=== PATIENT | female | born 1945 | race American Indian/Alaskan Native ===

== ENCOUNTER 2022-08-02 14:07 | Emergency (ER) | payer OTHER ==
[2022-08-02 14:24] VITALS: BP 137/77; PULSE 61; RESP 16; TEMP 98.7; BMI 34.2
== END 2022-08-02 17:05 | disposition home or self-care (01) ==
LOC: JER 14:07
DX: M25.551 Pain in right hip (principal); W18.30XA Fall on same level, unspecified, initial encounter; Y93.89 Activity, other specified; Y92.008 Other place in unspecified non-institutional (private) residence as the place of occurrence of the external cause
CPT/HCPCS: 73502-TC-RT-FY; 73552-TC-RT-FY; 99283-25

== ENCOUNTER 2023-09-20 06:34 | Emergency (ER) | payer OTHER ==
[2023-09-20 06:58] VITALS: RESP 16; BMI 32.7
[2023-09-20 10:03] VITALS: BP 180/85; PULSE 67; TEMP 98.7
[2023-09-20 10:17] LABS: URINE APPEARANCE CLEAR; URINE BILIRUBIN NEGATIVE (NEGATIVE); URINE COLOR YELLOW; URINE GLUCOSE (UA) NEGATIVE (NEGATIVE); URINE KETONE NEGATIVE (NEGATIVE); URINE LEUK ESTERASE NEGATIVE (NEGATIVE); URINE NITRITE NEGATIVE (NEGATIVE); URINE PROTEIN NEGATIVE (NEGATIVE); URINE UROBILINOGEN 0.2 mg/dL (0.2-1.0)
[2023-09-20 10:22] LABS: BASO % 0.3 % (0-2.0); HEMATOCRIT 42.3 % (32.4-45.2); MCH 30.9 pg (25.7-33.7); MCHC 33.1 g/dl (32.0-36.0); MEAN CELL VOLUME 93.5 fl (80-96); MEAN PLT VOLUME 9.4 fl (7.5-11.1); MONO % 5.5 % (3.8-10.2); NEUT % 87.2 % (42.8-82.8); PLATELET COUNT 285 10^3/uL (134-434); RBC 4.52 M/mm3 (3.60-5.2); RDW 13.4 % (11.6-15.6); WHITE BLOOD COUNT 16.8 K/mm3 (4.0-10.0)
[2023-09-20 10:25] LABS: INR 1.03 (0.83-1.09); PROTHROMBIN TIME (PATIENT) 11.8 SEC (9.7-13.0)
[2023-09-20 10:42] LABS: POTASSIUM 3.4 mmol/L (3.5-5.1)
[2023-09-20 10:45] LABS: ALBUMIN 4.1 g/dl (3.4-5.0); BLOOD UREA NITROGEN 18.5 mg/dL (7-18); CALCIUM 10.6 mg/dL (8.5-10.1)
[2023-09-20 10:48] LABS: CREATININE 0.9 mg/dL (0.55-1.3)
[2023-09-20 10:50] LABS: BILIRUBIN,TOTAL 0.9 mg/dL (0.2-1); TOT PROT 7.8 g/dl (6.4-8.2)
== END 2023-09-20 11:34 | disposition short-term general hospital (02) ==
LOC: JER 06:34
DX: G83.4 Cauda equina syndrome (principal); M62.81 Muscle weakness (generalized)
CPT/HCPCS: 36415; 80053; 81003; 85025; 85610; 86850; 86900; 86901; 87086; 93005; 93010; 99291

== ENCOUNTER 2024-11-12 18:35 | Inpatient (IN) | payer OTHER ==
[2024-11-12 18:47] VITALS: BMI 37.3
[2024-11-12] MEDS: LACTATED RINGERS SOLUTION 1000 ML INFUS.BAG IV ONE (20:15)
[2024-11-12] MEDS: ACETAMINOPHEN 325 MG TABLET (FP) PO ONE (20:20)
[2024-11-12] MEDS ORDERED: ACETAMINOPHEN 325 MG TABLET (FP) ONE (20:39)
[2024-11-12 20:51] LABS: ABSOLUTE IMMATURE GRANULOCYTES 0.07 x10^3/uL (0.0-0.031); BASOPHILS # 0.09 x10^3/uL (0.01-0.08); EOSINOPHIL % 0.4 % (0.7-5.8); EOSINOPHILS # 0.05 x10^3/uL (0.04-0.36); MCHC 30.8 g/dl (32.2-35.5); MEAN CELL VOLUME 86.6 fl (79.4-94.8); MEAN PLT VOLUME 10.8 fl (9.4-12.3); MONOCYTE # 1.02 x10^3/uL (0.24-0.86); MONOCYTE % 8.0 % (4.7-12.5); RDW 15.1 % (12.4-16.6)
[2024-11-12 20:55] LABS: LACTIC ACID 2.8 mmol/L (0.4-2.0)
[2024-11-12 21:08] LABS: EPI CELLS 4 /uL (0-25.1); HYALINE CASTS 0 /uL (0-3.1); URINE APPEARANCE CLOUDY; URINE BACTERIA >9,000 /uL (0-1359); URINE BILIRUBIN NEGATIVE (NEGATIVE); URINE COLOR YELLOW; URINE GLUCOSE (UA) NEGATIVE (NEGATIVE); URINE KETONE NEGATIVE (NEGATIVE); URINE LEUK ESTERASE 3+ (NEGATIVE); URINE NITRITE POSITIVE (NEGATIVE); URINE PROTEIN 1+ (NEGATIVE); URINE RBC 23 /uL (0-23.9); URINE UROBILINOGEN 1.0 mg/dL (0.2-1.0); URINE WBC 1529 /uL (0-25.8)
[2024-11-12 21:12] LABS: GLUCOSE,RANDOM 170.0 mg/dL (74-106); TOT PROT 7.3 g/dl (6.4-8.2)
[2024-11-12 21:13] LABS: CO2 24.0 mmol/L (21-32)
[2024-11-12 21:15] LABS: ALK PHOS 72.0 U/L (40-150)
[2024-11-12 21:17] LABS: SGOT/AST 16.0 U/L (5-34); SGPT/ALT 7.0 U/L (0-55)
[2024-11-12 21:18] LABS: CREATININE 0.69 mg/dL (0.55-1.3)
[2024-11-12] MEDS: LACTATED RINGERS SOLUTION 1,000 ML/1,000 ML INFUS.BAG IV SCH (21:44)
[2024-11-12] MEDS: LEVOFLOXACIN IVPB ONE (22:24)
[2024-11-13] MEDS: RANOLAZINE E.R. 500 MG TABLET (FP) PO SCH (02:10)
[2024-11-13] MEDS: MYCOPHENOLATE SODIUM 360 MG TABLET.DR PO SCH (02:11)
[2024-11-13] MEDS: ACETAMINOPHEN 1000 MG/100 ML BAG IVPB PRN (06:10)
[2024-11-13] MEDS: INSULIN ASPART SLIDING SCALE (NOVOLOG) 1 VIAL SQ SCH (06:17)
[2024-11-13] MEDS: GABAPENTIN 300 MG CAPSULE PO SCH (06:17)
[2024-11-13] MEDS: FUROSEMIDE 40 MG/4 ML INJECTABLE VIAL IVPUSH ONE (06:22)
[2024-11-13] MEDS: TRIMETHOBENZAMIDE HCL 200MG/2ML INJ IM PRN (07:51)
[2024-11-13 08:38] LABS: ABSOLUTE IMMATURE GRANULOCYTES 0.05 x10^3/uL (0.0-0.031); BASOPHILS # 0.06 x10^3/uL (0.01-0.08); EOSINOPHIL % 0.2 % (0.7-5.8); EOSINOPHILS # 0.03 x10^3/uL (0.04-0.36); MCHC 31.4 g/dl (32.2-35.5); MEAN CELL VOLUME 85.3 fl (79.4-94.8); MEAN PLT VOLUME 10.8 fl (9.4-12.3); MONOCYTE # 1.31 x10^3/uL (0.24-0.86); MONOCYTE % 10.0 % (4.7-12.5); RDW 15.0 % (12.4-16.6)
[2024-11-13 08:41] LABS: INR 1.33 (0.83-1.09); PROTHROMBIN TIME (PATIENT) 14.5 SEC (9.7-13.0)
[2024-11-13 08:44] LABS: ACTIVATED PTT 30.3 SECONDS (25.2-36.5)
[2024-11-13 09:05] LABS: GLUCOSE,RANDOM 156.0 mg/dL (74-106)
[2024-11-13 09:06] LABS: CO2 23.0 mmol/L (21-32)
[2024-11-13 09:11] LABS: CREATININE 0.63 mg/dL (0.55-1.3)
[2024-11-13] MEDS: ENOXAPARIN NA (PORCINE) 40 MG/0.4 ML DISP.SYRIN SQ SCH (09:35)
[2024-11-13] MEDS: predniSONE 5 MG TABLET (UD) PO SCH (09:35)
[2024-11-13] MEDS: ASPIRIN COATED 81 MG TABLET.EC PO SCH (09:35)
[2024-11-13] MEDS: FUROSEMIDE 20 MG TABLET (FP) PO SCH (09:35)
[2024-11-13] MEDS: MEROPENEM 1 GM in DEXTROSE 5%-WATER 100 ML IVPB SCH (12:16)
[2024-11-13] MEDS: POTASSIUM CHLORIDE ORAL LIQUID 20 MEQ/15 ML PO ONE (12:18)
[2024-11-13] MEDS ORDERED: ONDANSETRON 4 MG/2 ML VIAL IVPUSH PRN (18:14)
[2024-11-13] MEDS: POLYETHYLENE GLYCOL (HEALTHYLAX) 3350 17 GM PACKET PO SCH (18:31)
[2024-11-13] MEDS: ROSUVASTATIN CA 10 MG TABLET PO SCH (22:10)
[2024-11-14 07:51] LABS: ABSOLUTE IMMATURE GRANULOCYTES 0.05 x10^3/uL (0.0-0.031); BASOPHILS # 0.07 x10^3/uL (0.01-0.08); EOSINOPHIL % 0.4 % (0.7-5.8); EOSINOPHILS # 0.05 x10^3/uL (0.04-0.36); MCHC 30.7 g/dl (32.2-35.5); MEAN CELL VOLUME 87.0 fl (79.4-94.8); MEAN PLT VOLUME 10.8 fl (9.4-12.3); MONOCYTE # 1.25 x10^3/uL (0.24-0.86); MONOCYTE % 10.9 % (4.7-12.5); RDW 15.5 % (12.4-16.6)
[2024-11-14 08:26] LABS: GLUCOSE,RANDOM 141.0 mg/dL (74-106)
[2024-11-14 08:27] LABS: TOT PROT 6.4 g/dl (6.4-8.2)
[2024-11-14 08:28] LABS: CO2 26.0 mmol/L (21-32)
[2024-11-14 08:29] LABS: ALK PHOS 69.0 U/L (40-150)
[2024-11-14 08:32] LABS: CREATININE 0.55 mg/dL (0.55-1.3); SGOT/AST 22.0 U/L (5-34); SGPT/ALT 7.0 U/L (0-55)
[2024-11-14] MEDS: FUROSEMIDE 20 MG TABLET (FP) PO SCH (09:46)
[2024-11-14 10:13] LABS: N-TERMINAL BNP 1283.3 pg/mL (0-299.9)
[2024-11-14] MEDS: ACETAMINOPHEN 325 MG TABLET (FP) PO PRN (17:37)
[2024-11-15 10:19] LABS: ABSOLUTE IMMATURE GRANULOCYTES 0.03 x10^3/uL (0.0-0.031); BASOPHILS # 0.06 x10^3/uL (0.01-0.08); EOSINOPHIL % 2.8 % (0.7-5.8); EOSINOPHILS # 0.19 x10^3/uL (0.04-0.36); MCHC 30.8 g/dl (32.2-35.5); MEAN CELL VOLUME 86.4 fl (79.4-94.8); MEAN PLT VOLUME 10.5 fl (9.4-12.3); MONOCYTE # 0.86 x10^3/uL (0.24-0.86); MONOCYTE % 12.8 % (4.7-12.5); RDW 15.4 % (12.4-16.6)
[2024-11-15 12:22] LABS: GLUCOSE,RANDOM 131.0 mg/dL (74-106)
[2024-11-15 12:23] LABS: CO2 26.0 mmol/L (21-32); TOT PROT 6.0 g/dl (6.4-8.2)
[2024-11-15 12:25] LABS: ALK PHOS 72.0 U/L (40-150)
[2024-11-15 12:28] LABS: CREATININE 0.57 mg/dL (0.55-1.3); SGOT/AST 24.0 U/L (5-34); SGPT/ALT 12.0 U/L (0-55)
[2024-11-16 07:12] LABS: ABSOLUTE IMMATURE GRANULOCYTES 0.05 x10^3/uL (0.0-0.031); BASOPHILS # 0.07 x10^3/uL (0.01-0.08); EOSINOPHIL % 4.0 % (0.7-5.8); EOSINOPHILS # 0.28 x10^3/uL (0.04-0.36); MCHC 30.1 g/dl (32.2-35.5); MEAN CELL VOLUME 87.0 fl (79.4-94.8); MEAN PLT VOLUME 10.0 fl (9.4-12.3); MONOCYTE # 1.11 x10^3/uL (0.24-0.86); MONOCYTE % 16.0 % (4.7-12.5); RDW 15.1 % (12.4-16.6)
[2024-11-16 07:34] LABS: GLUCOSE,RANDOM 150.0 mg/dL (74-106); TOT PROT 6.5 g/dl (6.4-8.2)
[2024-11-16 07:35] LABS: CO2 28.0 mmol/L (21-32)
[2024-11-16 07:37] LABS: ALK PHOS 93.0 U/L (40-150)
[2024-11-16 07:40] LABS: CREATININE 0.55 mg/dL (0.55-1.3); SGOT/AST 37.0 U/L (5-34); SGPT/ALT 19.0 U/L (0-55)
[2024-11-16] MEDS: FUROSEMIDE 40 MG TABLET (FP) PO SCH (10:41)
[2024-11-16] MEDS ORDERED: INSULIN ASPART SLIDING SCALE (NOVOLOG) 1 VIAL SQ ONE (11:23)
[2024-11-17 07:18] LABS: ABSOLUTE IMMATURE GRANULOCYTES 0.04 x10^3/uL (0.0-0.031); BASOPHILS # 0.08 x10^3/uL (0.01-0.08); EOSINOPHIL % 3.0 % (0.7-5.8); EOSINOPHILS # 0.21 x10^3/uL (0.04-0.36); MCHC 30.8 g/dl (32.2-35.5); MEAN CELL VOLUME 85.8 fl (79.4-94.8); MEAN PLT VOLUME 10.4 fl (9.4-12.3); MONOCYTE # 0.98 x10^3/uL (0.24-0.86); MONOCYTE % 14.1 % (4.7-12.5); RDW 15.1 % (12.4-16.6)
[2024-11-17 07:40] LABS: GLUCOSE,RANDOM 137.0 mg/dL (74-106); TOT PROT 6.1 g/dl (6.4-8.2)
[2024-11-17 07:42] LABS: CO2 26.0 mmol/L (21-32)
[2024-11-17 07:43] LABS: ALK PHOS 88.0 U/L (40-150)
[2024-11-17 07:46] LABS: CREATININE 0.54 mg/dL (0.55-1.3); SGOT/AST 27.0 U/L (5-34); SGPT/ALT 20.0 U/L (0-55)
[2024-11-18 06:57] LABS: ABSOLUTE IMMATURE GRANULOCYTES 0.03 x10^3/uL (0.0-0.031); BASOPHILS # 0.09 x10^3/uL (0.01-0.08); EOSINOPHIL % 4.0 % (0.7-5.8); EOSINOPHILS # 0.26 x10^3/uL (0.04-0.36); MCHC 30.9 g/dl (32.2-35.5); MEAN CELL VOLUME 84.9 fl (79.4-94.8); MEAN PLT VOLUME 10.1 fl (9.4-12.3); MONOCYTE # 0.93 x10^3/uL (0.24-0.86); MONOCYTE % 14.3 % (4.7-12.5); RDW 15.0 % (12.4-16.6)
[2024-11-18 07:25] LABS: GLUCOSE,RANDOM 143.0 mg/dL (74-106); TOT PROT 6.4 g/dl (6.4-8.2)
[2024-11-18 07:26] LABS: CO2 26.0 mmol/L (21-32)
[2024-11-18 07:27] LABS: ALK PHOS 96.0 U/L (40-150)
[2024-11-18 07:30] LABS: SGPT/ALT 17.0 U/L (0-55)
[2024-11-18 07:31] LABS: CREATININE 0.54 mg/dL (0.55-1.3)
[2024-11-18 08:05] LABS: SGOT/AST 23.0 U/L (5-34)
[2024-11-19 11:32] VITALS: BP 118/72; PULSE 78; RESP 18; TEMP 98.4
[2024-11-19] MEDS ORDERED: INSULIN ASPART SLIDING SCALE (NOVOLOG) 1 VIAL SQ ONE (11:49)
== END 2024-11-19 15:10 | disposition home health service (06) | DRG 690 ==
LOC: JER 18:35 → JERBED 20:52 → J8W 11-13 00:24
PROVIDERS: ADMIT Hospitalist; ATTEND Internal Medicine
PROC: 02HV33Z Insertion of Infusion Device into Superior Vena Cava, Percutaneous Approach (ICD-10-PCS; principal; 2024-11-18)
PROC: B548ZZA Ultrasonography of Superior Vena Cava, Guidance (ICD-10-PCS; 2024-11-18)
DX: N39.0 Urinary tract infection, site not specified (principal); J84.9 Interstitial pulmonary disease, unspecified; Z16.12 Extended spectrum beta lactamase (ESBL) resistance; I50.32 Chronic diastolic (congestive) heart failure; E11.9 Type 2 diabetes mellitus without complications; E78.5 Hyperlipidemia, unspecified; M54.16 Radiculopathy, lumbar region; M35.00 Sjogren syndrome, unspecified; I11.0 Hypertensive heart disease with heart failure
CPT/HCPCS: 36415; 36569; 71045-TC-FY; 74177-TC; 80048; 80053; 81003; 82962; 83605; 83735; 83880; 84100; 85025; 85610; 85730; 87040; 87086; 93005; 93010; 93306-TC; 97116-GP; 97163-GP; 99285-25; Q9967

== ENCOUNTER 2024-11-23 12:06 | Day surgery (SDC) | payer OTHER ==
[2024-11-23] MEDS: ERTAPENEM SODIUM 1 GM in SODIUM CHLORIDE 50 ML IVPB ONE (12:28)
[2024-11-23 12:53] VITALS: BP 109/54; PULSE 73; TEMP 97.8
[2024-11-23 13:16] VITALS: RESP 17
== END 2024-11-23 13:15 | disposition home or self-care (01) ==
LOC: FINFUSION 12:06 → FM/S 12:07 → FINFUSION 13:15
PROVIDERS: ATTEND Internal Medicine Infectious Disease
DX: N39.0 Urinary tract infection, site not specified (principal); Z16.12 Extended spectrum beta lactamase (ESBL) resistance
CPT/HCPCS: 96365